=== PATIENT | female | born 1965 | race Caucasian/White ===

== ENCOUNTER 2022-04-04 08:06 | Outpatient (CLI) | payer BC | END 2022-04-04 08:07 | disposition home or self-care (01) | LOC: CSHMAMMO 08:06 | PROVIDERS: ATTEND Obstetrics & Gynecology | DX: Z12.31 Encounter for screening mammogram for malignant neoplasm of breast (principal); M85.80 Other specified disorders of bone density and structure, unspecified site | CPT/HCPCS: 77063; 77067; 77080 ==

== ENCOUNTER 2022-08-11 01:45 | Emergency (ER) | payer BC ==
[2022-08-11] MEDS ORDERED: Ketorolac Tromethamine 30 MG/ML VIAL ONE (02:38)
== END 2022-08-11 02:45 | disposition home or self-care (01) ==
LOC: CSHERS 01:45
DX: S93.402A Sprain of unspecified ligament of left ankle, initial encounter (principal); S93.602A Unspecified sprain of left foot, initial encounter; K21.9 Gastro-esophageal reflux disease without esophagitis; Z79.899 Other long term (current) drug therapy; W17.89XA Other fall from one level to another, initial encounter
CPT/HCPCS: 96372; J1885